=== PATIENT | male | born 1975 | race Caucasian/White ===

== ENCOUNTER 2020-12-07 09:56 | Emergency (ER) | payer BC ==
[2020-12-07] MEDS ORDERED: Sodium Chloride 0.9% 10 ML Syringe FLUSH PRN (10:01)
[2020-12-07] MEDS ORDERED: Ondansetron 4 MG/2 ML SDV IVPUSH ONE (10:03)
[2020-12-07] MEDS: Sodium Chloride 0.9% 1,000 ML IV SCH ×2 (10:10→11:02)
--- NOTE | 2020-12-07 10:29 | EDM.PDOC ---
ED HPI GENERAL MEDICAL PROBLEM - General Stated Complaint: STOMACH PAIN Time Seen by Provider: 12/07/20 10:00 Source of Information: Reports: Patient History Limitations: Reports: No Limitations - History of Present Illness INITIAL COMMENTS - FREE TEXT/NARRATIVE: Pt. presents to ER with complaints of severe nausea, vomiting, and diarrhea. Pt. states that that symptoms started yesterday. He states that he is unable to hold down fluids. Pt. denies any dark or bloody stools. No chest pain or shortness of breath. Denies any cough or congestion. He had a negative covid test 2 days ago. Pt. denies any ill contacts. He is worried he may have food poisoning. He states that he has been fishing lately, and is concerned that unwashed hands after handling fish may be contributing to the illness. Onset: Today Onset Date: 12/07/20 Location: Reports: Chest Associated Symptoms: Reports: Nausea/Vomiting Middle Abdomen Pain Score (Numeric/FACES): 1 - Related Data Allergies Allergy/AdvReac Type Severity Reaction Status Date / Time No Known Allergies Allergy Verified 12/07/20 10:01 Home Meds: Home Meds Multivitamin 1 each PO DAILY 12/07/20 [History] Omeprazole Magnesium [Prilosec Otc] 20 mg PO DAILY 12/07/20 [History] ED ROS GENERAL - Review of Systems Review Of Systems: See Below Constitutional: Reports: No Symptoms. Denies: Fever, Chills, Malaise, Weakness HEENT: Reports: No Symptoms Respiratory: Reports: No Symptoms Cardiovascular: Reports: No Symptoms Endocrine: Reports: No Symptoms GI/Abdominal: Reports: Nausea, Vomiting : Reports: No Symptoms Musculoskeletal: Reports: No Symptoms Skin: Reports: No Symptoms Neurological: Reports: No Symptoms Psychiatric: Reports: No Symptoms Hematologic/Lymphatic: Reports: No Symptoms Immunologic: Reports: No Symptoms ED EXAM, GENERAL - Physical Exam Exam: See Below Exam Limited By: No Limitations General Appearance: Alert, WD/WN, No Apparent Distress Respiratory/Chest: No Respiratory Distress, Lungs Clear, Normal Breath Sounds, No Accessory Muscle Use, Chest Non-Tender Cardiovascular: Normal Peripheral Pulses, Regular Rate, Rhythm, No Edema, No JVD GI/Abdominal: Normal Bowel Sounds, Soft, Non-Tender, No Organomegaly, No Distention, No Mass (Male) Exam: Deferred Rectal (Males) Exam: Deferred Back Exam: Normal Inspection, Full Range of Motion Extremities: Normal Inspection, Normal Range of Motion, Non-Tender, No Pedal Edema, Normal Capillary Refill Neurological: Alert, Oriented, CN II-XII Intact, Normal Cognition, Normal Gait, Normal Reflexes, No Motor/Sensory Deficits Psychiatric: Normal Affect, Normal Mood Skin Exam: Warm, Dry, Intact, Normal Color, No Rash Lymphatic: No Adenopathy Course - Vital Signs Last Recorded V/S: Last Vital Signs Temp 36.6 C 12/07/20 10:00 Pulse 112 H 12/07/20 10:00 Resp 16 12/07/20 10:00 BP 155/98 H 12/07/20 10:00 Pulse Ox 98 12/07/20 10:00 - Orders/Labs/Meds Orders: Active Orders 24 hr Category Date Time Status Peripheral IV Insertion Adult [OM.PC] Routine Oth 12/07/20 10:02 Ordered Labs: Laboratory Tests 12/07/20 12/07/20 12/07/20 Range/Units 10:07 10:07 10:07 WBC 13.2 H (4.0-10.0) x10^3/uL RBC 5.21 (4.5-6.0) x10^6/uL Hgb 15.2 (14.0-18.0) g/dL Hct 45.4 (40.0-52.0) % MCV 87.1 (78.0-93.0) fL MCH 29.2 (26.0-32.0) pg MCHC 33.5 (32.0-36.0) g/dL RDW Coeff of Cailin 12.0 (10.0-15.0) % Plt Count 186 (130-400) x10^3/uL Neut % (Auto) 92.6 H (50.0-80.0) % Lymph % (Auto) 3.0 L (25.0-50.0) % [place] % (Auto) 4.3 (2.0-11.0) % Eos % (Auto) 0.0 (0.0-4.0) % Baso % (Auto) 0.1 L (0.2-1.2) % PT 10.4 (9.9-12.5) SEC INR 0.9 L (2.0-3.5) Sodium 138 (136-145) mmol/L Potassium 3.8 (3.5-5.1) mmol/L Chloride 97 L (98-107) mmol/L Carbon Dioxide 29 (21-32) mmol/L Anion Gap 15.8 H (5-15) mmol/L BUN 19 H (7-18) mg/dL Creatinine 1.0 (0.70-1.30) mg/dL Est Cr Clr Drug Dosing TNP Estimated GFR (MDRD) > 60 Glucose 149 H (74-106) mg/dL Calcium 9.2 (8.5-10.1) mg/dL Corrected Calcium 8.80 (8.5-10.1) mg/dL Magnesium 1.8 (1.8-2.4) mg/dL Total Bilirubin 1.3 H (0.2-1.0) mg/dL AST 38 H (15-37) U/L ALT 83 H (16-63) U/L Alkaline Phosphatase 66 (46-116) U/L C-Reactive Protein 2.1 H (<=0.9) mg/dL Total Protein 8.1 (6.4-8.2) g/dL Albumin 4.5 (3.4-5.0) g/dL Globulin 3.6 Albumin/Globulin Ratio 1.25 Amylase 57 (25-115) U/L Lipase 85 (73-393) U/L Meds: Medications Discontinued Medications Generic Name Dose Route Start Last Admin Trade Name Freq PRN Reason Stop Dose Admin Sodium Chloride 1,000 mls @ 1,000 mls/hr 12/07/20 10:15 12/07/20 11:02 Normal Saline IV 1,000 mls/hr ASDIRECTED KURT Administration Ondansetron HCl 4 mg 12/07/20 10:03 12/07/20 10:24 Zofran IVPUSH 12/07/20 10:04 4 mg ONETIME ONE Administration Sodium Chloride 10 ml 12/07/20 10:01 Saline Flush FLUSH ASDIRECTED PRN Keep Vein Open - Re-Assessments/Exams Free Text/Narrative Re-Assessment/Exam: Pt. was given 2 liters of NS and 4 mg Zofran IV. Reported significant imp rovement in symptoms with no further nausea/vomiting. Departure - Departure Time of Disposition: 16:50 Disposition: Home, Self-Care 01 Clinical Impression: Gastroenteritis - Discharge Information Instructions: Ondansetron oral dissolving tablet, Viral Gastroenteritis, Adult, [id number] Referrals: PCP,Not In Area [Primary Care Provider] - Forms: ED Department Discharge Additional Instructions: Zofran ODT 1 every 6 hours as needed for nausea/vomiting I would only drink clear liquids today. You can add a bland diet tonight/tomorrow, including toast, crackers, apples, and bananas. Slowly advance your diet as you are able to tolerate these foods. Return to ER if you are unable to hold down fluids, have worsening discomfort. Recheck in clinic in 7 days, sooner if not gradually improving. A few of your labs were abnormal. This can happen with gastroenteritis, but you should have them rechecked once you get better. Sepsis Event Note (ED) - Focused Exam Vital Signs: Vital Signs Temp Pulse Resp BP Pulse Ox 12/07/20 10:00 36.6 C 112 H 16 155/98 H 98 - My Orders Last 24 Hours: My Active Orders 12/07/20 10:02 Peripheral IV Insertion Adult [OM.PC] Routine - Assessment/Plan Last 24 Hours: My Active Orders 12/07/20 10:02 Peripheral IV Insertion Adult [OM.PC] Routine Plan: Zofran ODT 1 every 6 hours as needed for nausea/vomiting I would only drink clear liquids today. You can add a bland diet tonight/tomorrow, including toast, crackers, apples, and bananas. Slowly advance your diet as you are able to tolerate these foods. Return to ER if you are unable to hold down fluids, have worsening discomfort. Recheck in clinic in 7 days, sooner if not gradually improving. A few of your labs were abnormal. This can happen with gastroenteritis, but you should have them rechecked once you get better.
[2020-12-07 10:33] LABS: ANION GAP 15.8 mmol/L (5-15); CHLORIDE,CL 97 mmol/L (98-107); SODIUM,NA 138 mmol/L (136-145)
== END 2020-12-07 12:00 | disposition home or self-care (01) ==
LOC: VM.ED 09:56
DX: K52.9 Noninfective gastroenteritis and colitis, unspecified (principal)
CPT/HCPCS: 80053; 82150; 83690; 83735; 85025; 85610; 86140; 96374; 99283; 99284-25; J2405; J7030